=== PATIENT | male | born 1970 | race Caucasian/White ===

== ENCOUNTER 2017-07-17 09:56 | Outpatient (CLI) | payer OTHER ==
[2017-07-17 11:58] LABS: EOSINOPHILS % 0.2 % (0.0-6.8); MEAN CORPUSCULAR HEMOGLOBIN 30.8 pg (28.0-34.0); MEAN CORPUSCULAR VOLUME 91.5 fl (80.0-100.0); MONOCYTES % 9.2 % (0.0-11.0); NEUTROPHILS # 7.2 # k/uL (1.4-7.7)
[2017-07-17 12:01] LABS: eGFR (African) > 60; eGFR (Non-African) > 60
[2017-07-17 15:42] VITALS: BP 106/75
== END 2017-07-17 10:05 ==
LOC: LAB 09:56
PROVIDERS: ATTEND General Practice
DX: R56.9 Unspecified convulsions (principal)
CPT/HCPCS: 80053; 85025

== ENCOUNTER 2017-07-17 10:52 | Emergency (ER) | payer OTHER ==
--- NOTE | 2017-07-17 11:12 | ED Physician Documentation ---
General Adult - HISTORIAN Historian: patient - HPI Chief Complaint: General Adult Additional Information: 46yo white male who states that on Sunday her started to have some headache, achy feeling chill, fever 102-103. Patient was placed on the Flu meredith to be monitored. Patient felt that he was doing fairly well until this AM. Patient states that he had a syncopal episode this AM. Is ont sure what precipitated it. . Patient was reported to have have tonic clonic seizure like activity. No bladder or bowel incontinence issues. Patient states that he has had one previous seizure about 8 years ago, not related to drugs or alcohol. Never had a workup done or was seen by a medical provider for it. No family history of seizures. Has also been having some lightheadedness with orthostatic changes that have developed since Sunday. This AM was reported to have had his systolic BP drop to 66 with symptoms. No previous heart problems, denies any tachy or bradycardia, no hypoglycemic episodes noted. Patient has not had any previous syncopal or near syncopal episode Onset: days ago (2 days ago Sunday) Timing: still present Further Comments: no - ROS CONST: fever, sweating, recent illness (influenza), chills EYES/ENT: none CVS/RESP: none, cough (mild). denies: chest pain, shortness of breath GI/: none. denies: abdominal pain, problems urinating, vomiting, nausea MS/SKIN/LYMPH: none NEURO/PSYCH: headache, fainting, dizziness - PAST HX Past History: none, other (history of previous seizure activity 8 years ago) Surgeries/Procedures: none Immunizations: referred to PCP Allergies/Adverse Reactions: Allergies Allergy/AdvReac Type Severity Reaction Status Date / Time No Known Allergies Allergy Verified 07/17/17 11:04 Home Medications: Ambulatory Orders Medication Instructions Recorded NK [NK] 07/17/17 - SOCIAL HX Smoking History: less than 1 pack/day Alcohol Use: none Drug Use: none - FAMILY HX Family History: No - REVIEWED ASSESSMENTS Nursing Assessment Reviewed: Yes Vitals Reviewed: Yes Progress - Progress Progress: 12:04 Patient states that he is feeling some better, BP 119/74 12:18 Orthostatic BP much improved. 13:08 Finished last bolus of fluid, BP 116/78 ED Results Lab/Radiology - Radiology Radiology Impressions: Examination: CT head without contrast History: SEIZURE LASTNIGHT (Hx) Comparison exam: None available Technique: Noncontrast head CT protocol. Findings: Ventricles and sulci are appropriate for patient age. Cerebrocerebellar parenchyma demonstrates normal attenuation. No evidence for parenchymal hemorrhage. No evidence for mass or mass effect. No midline shift. No extra axial fluid collections. Partial visualization of the paranasal sinuses demonstrates a large left maxillary mucous cyst. Mastoid air cells, orbits, skull and scalp without gross irregularity. Impression: No acute parenchymal process. No hemorrhage. General Adult Physical Exam - PHYSICAL EXAM GENERAL APPEARANCE: mild distress EENT: eye inspection normal, pharynx normal. No: ENT inspection normal (mild dry mucous membranes) NECK: normal inspection, thyroid normal, supple RESPIRATORY: no resp distress, chest non-tender, breath sounds normal. No: wheezes, rales, rhonchi CVS: reg rate & rhythm, heart sounds normal, equal pulses, no murmur ABDOMEN: soft, no organomegaly, normal bowel sounds, no abdominal bruit, no distension, non-tender BACK: no CVA tenderness SKIN: warm/dry, normal color EXTREMITIES: non-tender, no edema. No: tenderness (no claf tenderness) NEURO: oriented X3, CN's nml as tested, motor nml, sensation nml, mood/affect nml, cognition normal Discharge Clincal Impression: Orthostatic hypotension, Dehydration, Influenza Referrals: Kalpesh Vides III, MD [Primary Care Provider] - 2 Days Additional Instructions: Make sure you drink enough fluids to keep your urine a light yellow color. Talk with medical claims analyst about possible seizure activity and about your history of blood clots. Wash your hands to prevent further spreading of the flu. Condition: Stable Disposition: 01 HOME, SELF-CARE Decision to Admit: NO Date of Decison to Admit: 07/17/17 Decision Time: 13:01
[2017-07-17 11:56] LABS: BASOPHILS % 0.7 (0.0-1.5); EOSINOPHILS % 0.5 % (0.0-6.8); MEAN CORPUSCULAR HEMOGLOBIN 30.7 pg (28.0-34.0); MEAN CORPUSCULAR VOLUME 92.1 fl (80.0-100.0); MONOCYTES % 5.3 % (0.0-11.0); NEUTROPHILS # 8.2 # k/uL (1.4-7.7)
[2017-07-17 12:08] LABS: eGFR (African) > 60; eGFR (Non-African) > 60
--- NOTE | 2017-07-17 12:14 | Diagnostic Imaging Report ---
RACHEAL ALFREDO [facility] [id number] [facility] [address] [place] [address]. [id number] Report Submission Date: Jul 17, 2017 11:51:37 AM PAY STATION ATTENDANT Patient Study Name: RENETTA HOFFMAN Date: Jul 17, 2017 11:26:51 AM PAY STATION ATTENDANT Modality Type: CT\SR Gender: M Description: CT BRAIN W/O CONTRAST : 72 Institution: [facility] Physician: RACHEAL ALFREDO Examination: CT head without contrast History: SEIZURE LASTNIGHT (Hx) Comparison exam: None available Technique: Noncontrast head CT protocol. Findings: Ventricles and sulci are appropriate for patient age. Cerebrocerebellar parenchyma demonstrates normal attenuation. No evidence for parenchymal hemorrhage. No evidence for mass or mass effect. No midline shift. No extra axial fluid collections. Partial visualization of the paranasal sinuses demonstrates a large left maxillary mucous cyst. Mastoid air cells, orbits, skull and scalp without gross irregularity. Impression: No acute parenchymal process. No hemorrhage. Electronically signed on Jul 17, 2017 11:51:37 AM PAY STATION ATTENDANT by: [place] STORY
[2017-07-17] MEDS: 0.9 % SODIUM CHLORIDE 500 ML IV ONE (12:17)
[2017-07-17] MEDS: 0.9 % SODIUM CHLORIDE 500 ML IV SCH (12:17)
[2017-07-17 15:42] VITALS: BP 106/75
[2017-07-18 06:08] LABS: APPEARANCE,URINE CLEAR (CLEAR); COLOR,URINE YELLOW (YELLOW); OCCULT BLOOD,URINE NEGATIVE (NEGATIVE); UROBILINOGEN URINE 0.2 Eu (0.2-1.0)
== END 2017-07-17 13:30 | disposition home or self-care (01) ==
LOC: ED 10:52
DX: E86.0 Dehydration (principal); I95.9 Hypotension, unspecified; J11.89 Influenza due to unidentified influenza virus with other manifestations; R51 Headache
CPT/HCPCS: 70450; 80053; 85025; 85379; 93005; J7030; 36415; 81002; 96360; 99283